=== PATIENT | female | born 1990 | race Caucasian/White ===

== ENCOUNTER 2019-10-10 08:25 | Inpatient (IN) ==
[2019-10-10] MEDS ORDERED: OXYTOCIN 30 UNITS/500 ML BAG IV PRN (13:15)
[2019-10-10] MEDS ORDERED: miSOPROStoL 50 MCG TAB PO ONE (13:15)
[2019-10-10] MEDS ORDERED: LACTATED RINGER'S 1,000 ML IV PRN (13:15)
[2019-10-10] MEDS ORDERED: PENICILLIN G POTASSIUM 3 MU in DEXTROSE 5% 100 ML IV PRN (13:15)
--- NOTE | 2019-10-10 13:15 | Obstetrical Progress Note ---
Date of Service October 10, 2019 Assessment & Plan Admission and Anticipated Discharge Date Admission Date: October 10, 2019 Subjective Met Pt and family Doing well GDMA2 on Insulin @ 39+weeks Here for induction of labor Bedside sono; Vt FHR; CAT1 Ctx; Minimal VE; ft/50/-3 Plan Cervidil PO x1 Results & Data ([facility]) Vital Signs (Past 12 Hours) Vital Signs Temp Pulse Resp BP 10/10/19 12:03 36.7 C 82 20 130/71 10/10/19 11:51 82 130/71 10/10/19 11:49 36.7 C 20
[2019-10-10] MEDS ORDERED: PENICILLIN G POTASSIUM 6 MU in DEXTROSE 5% 250 ML IV STA (13:19)
[2019-10-10] MEDS ORDERED: DEXTROSE 5% 1,000 ML IV PRN (13:31)
[2019-10-10] MEDS ORDERED: SODIUM CHLORIDE 0.9% 1000ML 1,000 ML IV PRN (13:31)
[2019-10-10] MEDS ORDERED: INSULIN REGULAR 250 UNITS in SODIUM CHLORIDE 0.9% 247.5 ML IV PRN (13:31)
[2019-10-10] MEDS ORDERED: DEXTROSE 50% 50 ML SYRINGE IV PRN ×2 (13:31→21:30)
[2019-10-10 13:46] LABS: Hematocrit (blood only) 32.1 % (37-47); Hemoglobin 11.1 g/dL (12.0-16.0); Mean Corpuscular Hemoglobin 32.2 pg (25-34); Platelet Count 290 K/uL (130-400); RDW Coefficient of Variation 13.3 % (11.5-14.5); RDW Standard Deviation 45.1 fL (36.4-46.3); Red Blood Count 3.45 M/uL (4.2-5.4); White Blood Count 12.23 K/uL (4.8-10.8)
[2019-10-10 14:12] LABS: Mean Corpuscular Hgb Conc 34.6 g/dL (32-36)
[2019-10-10] MEDS ORDERED: DINOPROSTONE 10 MG INSERT PV ONE (20:30)
--- NOTE | 2019-10-10 21:28 | Obstetrical Progress Note ---
Date of Service October 10, 2019 Assessment & Plan Admission and Anticipated Discharge Date Admission Date: October 10, 2019 Subjective Pt doing well GDMA2 on insulin BS after dinner is 102 FHR; CAT1 Ctx; Minimal Plan; Will give Pt PM insulin and monitor Q2hrs Change IV from D5 to NS discussed plan with Pharmacy Results & Data ([facility]) Vital Signs (Past 12 Hours) Vital Signs Temp Pulse Resp BP 10/10/19 19:10 36.8 C 79 18 128/67 10/10/19 18:02 82 124/73 10/10/19 15:35 80 125/73 10/10/19 13:29 81 129/83 10/10/19 12:03 36.7 C 82 20 130/71 10/10/19 11:51 82 130/71 10/10/19 11:49 36.7 C 20
[2019-10-10] MEDS ORDERED: GLUCAGON FOR INJ 1 MG VIAL IM PRN (21:30)
[2019-10-10] MEDS: SODIUM CHLORIDE 0.9% 1000ML 1,000 ML IV SCH (21:30)
[2019-10-10] MEDS ORDERED: GLUCOSE 10 TABS/TUBE PO PRN (21:30)
[2019-10-10] MEDS ORDERED: CARBOHYDRATES FOR HYPOGLYCEMIA PO PRN (21:30)
[2019-10-10] MEDS ORDERED: GLUCOSE 40% GEL 15 GM TUBE PO PRN (21:30)
[2019-10-10] MEDS ORDERED: INSULIN DETEMIR FLEXPEN/FLEX TOUCH 100 UNITS/ML 3ML SC ONE (22:00)
[2019-10-11] MEDS: SODIUM CHLORIDE 0.9% 1000ML 1,000 ML IV SCH ×3 (04:49→20:00)
--- NOTE | 2019-10-11 08:20 | History & Physical Report ---
Date of Service October 11, 2019 Assessment & Plan (1) Gestational diabetes mellitus (GDM): 29 yo at 39.4 wks IOL for GDAM2 on insulin VSS Afebrile FS have been WNL GBS + Cervix not favorable Vaginal latisha noted Plan to continue with cervical ripening with PO Cytotec FS cover with insulin PCN for GBS Diflucan one dose Continue to monitor (2) Elective induction of labor planned: History of Present Illness Primary Care Provider: Narendra Morales MD Patient is a 29 yo at 39.4 wks IOL since yesterday for GDAMA2, on insulin Received PO Cytotec and Cervidil last night GBS + She does not feel any ctxs nor pain No LOF/VB +FM Denies any medical problems/ Smoking/ alcohol or Drug use No h/o STD's , no h/o HSV Allergies Allergy/AdvReac Type Severity Reaction Status Date / Time nickel Allergy Rash Verified 10/10/19 12:32 Home Medications Home Medications Medication Instructions Recorded Confirmed Type insulin detemir U-100 [Levemir 55 unit SUBCUT BID 09/22/19 10/10/19 History FlexTouch U-100 Insuln] vit-iron fum-folic ac 1 tab PO DAILY 09/22/19 10/10/19 History [ Vitamin] insulin aspart U-100 [Novolog See Rx Instructions .ROUTE .COMPLEX 10/10/19 10/10/19 History Flexpen U-100 Insulin] insulin aspart U-100 [Novolog See Rx Instructions .ROUTE .COMPLEX 10/10/19 10/10/19 History Flexpen U-100 Insulin] Patient History Medical History Chronic back pain Gestational diabetes Infertility Temporomandibular joint disorder POPS BILATERALLY AFTER DENTAL APPT-NO LOCKING Surgical History History of colonoscopy History of removal of ovarian cyst right ovary 2018 [place] teeth removed 2016 Family History Grandmother (Maternal) Diabetes mellitus type 1 Father Hypertension Grandfather (Maternal) Cancer Grandfather (Paternal) Cancer Social History Preferred Language: [place] Islander Communication Ability: Effective 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 Beliefs That Will Affect Care: None marital status: Current Living Situation: Spouse Other Information That Helps Us Care for You: No Feels Safe at Home: Yes Safety Concerns: Feels Safe At This Time Smoking Status: Never smoker Hx Alcohol Use: No Hx Substance Use: No Review of Systems All systems reviewed & are unremarkable except as noted in HPI & below Physical Exam Gastrointestinal (Abdomen): normal bowel sounds, soft, nontender, no hepatosplenomegaly Abd: soft, NT, gravid Mateo 7-8 lb Genitourinary: Speculum/Bimanual Exam: + vaginal erythema Manual OB Exam: + cervical dilation 1 cm, + cervical effacement 50% and + station high OB Exam Monitor Tracing: + category I Results & Data Vital Signs (Past 12 Hours) Vital Signs Temp Pulse Resp BP 10/11/19 07:36 36.7 C 67 16 99/56 L 10/11/19 04:27 76 102/58 L 10/11/19 04:26 36.7 C 16 10/11/19 00:36 36.7 C 81 16 105/56 L 10/10/19 21:59 36.8 C 79 16 121/69
[2019-10-11] MEDS ORDERED: FLUCONAZOLE 50 MG TAB PO STA (09:06)
[2019-10-11] MEDS: miSOPROStoL 50 MCG TAB PO SCH ×3 (09:32→17:44)
[2019-10-11] MEDS ORDERED: BUTORPHANOL TARTRATE 1 MG/ML VIAL IV PRN (10:00)
[2019-10-11] MEDS ORDERED: INSULIN ASPART 100 UNITS/ML 3 ML PEN SC SCH (11:30)
[2019-10-11] MEDS ORDERED: PENICILLIN G POTASSIUM 6 MU in DEXTROSE 5% 250 ML IV STA (16:22)
--- NOTE | 2019-10-11 17:24 | Obstetrical Progress Note ---
Date of Service October 11, 2019 Assessment & Plan Admission and Anticipated Discharge Date Admission Date: October 10, 2019 Subjective Patient is reevaluated She is due for 3rd dose of Cytotec She feels mild ctxs q 3-5 min, pain is 4/10, sometimes milder She has been walking with no discomfort No LOF/VB +FM's VE; 1-2 cm/ 50%/ -3, posterior FHR categ I [facility]: mild irregular ctxs 1st bag of PCN is running now Plan to continue with cytotec, AROM after 2nd dose of PCN Results & Data ([facility]) Vital Signs (Past 12 Hours) Vital Signs Temp Pulse Resp BP 10/11/19 16:05 68 114/60 10/11/19 14:43 69 112/62 10/11/19 11:50 36.3 C L 18 10/11/19 11:49 72 123/80 10/11/19 10:58 83 134/82 10/11/19 08:43 77 132/72 10/11/19 07:36 36.7 C 67 16 99/56 L
--- NOTE | 2019-10-11 19:46 | Obstetrical Progress Note ---
Date of Service October 11, 2019 Assessment & Plan Admission and Anticipated Discharge Date Admission Date: October 10, 2019 Subjective Patient reevaluated She became painful and received Stadol for pain, then SROM'ed with moderate meconium stained fluid'FHR with decreased variability ( s/p narcotics) with mild early/ late? decels with spontaneous recovery VE; 3/ 70%/ -3, + response to scalp stimulation with increase in FHR and variability, meconium stained fluid Will continue to monitor closely with IVF, Nasal O2, expect Stadol will wear off in next 30 minutes Results & Data ([facility]) Vital Signs (Past 12 Hours) Vital Signs Temp Pulse Resp BP 10/11/19 19:32 36.6 C 87 18 136/86 10/11/19 16:05 68 114/60 10/11/19 15:06 36.7 C 18 10/11/19 14:43 69 112/62 10/11/19 11:50 36.3 C L 18 10/11/19 11:49 72 123/80 10/11/19 10:58 83 134/82 10/11/19 08:43 77 132/72
[2019-10-11] MEDS ORDERED: ePHEDrine sulfate 50 MG/ML AMP ONE (20:31)
[2019-10-11] MEDS ORDERED: BUPIVACAINE 0.25% 30 ML VIAL ONE (20:31)
[2019-10-11] MEDS ORDERED: fentaNYL citrate 100 MCG/2 ML VIAL ONE ×2 (20:31→23:25)
[2019-10-11] MEDS ORDERED: fentaNYL 2MCG/ML ROPIV 1.25MG/ML 100 ML BAG EPI ONE (20:32)
--- NOTE | 2019-10-11 20:33 | Obstetrical Progress Note ---
Date of Service October 11, 2019 Assessment & Plan Admission and Anticipated Discharge Date Admission Date: October 10, 2019 Subjective Patient desires epidural for pain Pain is 8/10, feels pressure VE; good 3 cm/ 80%/ -3, light meconium FHR 120's, with improved variability, accels and mild decels to 110's with ctxs with spontaneous recovery, + response to scalp stimulation Continue to monitor closely Epidural for pain Results & Data ([facility]) Vital Signs (Past 12 Hours) Vital Signs Temp Pulse Resp BP 10/11/19 19:32 36.6 C 87 18 136/86 10/11/19 16:05 68 114/60 10/11/19 15:06 36.7 C 18 10/11/19 14:43 69 112/62 10/11/19 11:50 36.3 C L 18 10/11/19 11:49 72 123/80 10/11/19 10:58 83 134/82 10/11/19 08:43 77 132/72
[2019-10-11] MEDS ORDERED: TERBUTALINE SULFATE 1 MG/ML VIAL SQ ONE (20:37)
[2019-10-11] MEDS ORDERED: DiphenhydrAMINE HCL 50 MG/ML VIAL IV PRN (20:58)
[2019-10-11] MEDS ORDERED: fentaNYL 2MCG/ML ROPIV 1.25MG/ML 100 ML BAG EPI PRN (20:58)
[2019-10-11] MEDS ORDERED: ePHEDrine sulfate 50 MG/ML AMP IV PRN (20:58)
[2019-10-11] MEDS ORDERED: NALOXONE HCL 0.4 MG/1 ML VIAL/CARP IV PRN (20:58)
[2019-10-11] MEDS ORDERED: ONDANSETRON INJ 2 MG/ML 2 ML VIAL IV PRN (20:58)
[2019-10-11] MEDS ORDERED: NALOXONE HCL 1 MG in SODIUM CHLORIDE 0.9% 1000ML 1,000 ML IV PRN (20:58)
[2019-10-11] MEDS ORDERED: NALBUPHINE HCL INJ 10 MG/ML AMP IV PRN (20:58)
--- NOTE | 2019-10-11 21:00 | Anesthesiology Consultation ---
Date of Service October 11, 2019 Assessment & Plan (1) Encounter for pre-operative examination: Chart Review Chart Review: Patient NOT seen in Pre Admission Testing and Acceptable Risk for Labor Epidural Consults Requested none History Height/Weight Height: 5 ft 2 in Weight: 84.822 kg Allergies Allergy/AdvReac Type Severity Reaction Status Date / Time nickel Allergy Rash Verified 10/10/19 12:32 Medications Home Medications Medication Instructions Recorded Confirmed Last Taken insulin detemir U-100 [Levemir 55 unit SUBCUT BID 09/22/19 10/10/19 10/10/19 08:00 FlexTouch U-100 Insuln] vit-iron fum-folic ac 1 tab PO DAILY 09/22/19 10/10/19 10/09/19 23:00 [ Vitamin] insulin aspart U-100 [Novolog See Rx Instructions .ROUTE .COMPLEX 10/10/19 10/10/19 10/09/19 12:00 Flexpen U-100 Insulin] insulin aspart U-100 [Novolog See Rx Instructions .ROUTE .COMPLEX 10/10/19 10/10/19 10/09/19 19:45 Flexpen U-100 Insulin] Active Medications Generic Name Dose Route Start Last Admin Trade Name Freq PRN Reason Stop Dose Admin Butorphanol Tartrate 1 mg 10/11/19 10:00 10/11/19 19:01 Stadol IV 11/10/19 09:59 1 mg Q2HWA PRN Administration Pain Penicillin G Potassium 3 mu/ 106 mls @ 100 mls/hr 10/10/19 13:15 10/11/19 21:08 Dextrose IV 10/20/19 13:14 100 mls/hr Q4H PRN Administration Give until delivery Dextrose 1,000 mls @ 100 mls/hr 10/10/19 13:31 10/10/19 21:30 D5w IV 11/09/19 13:30 0 mls/hr .Q10H PRN Infusion BSG 180 or below Protocol Sodium Chloride 1,000 mls @ 125 mls/hr 10/10/19 22:15 10/11/19 20:53 Nss 1000ml IV 11/09/19 22:14 125 mls/hr .Q8H CONG Infusion Misoprostol 50 mcg 10/11/19 10:00 10/11/19 17:44 Cytotec PO 11/10/19 09:59 50 mcg Q4 CONG Administration Past Medical History Medical History Chronic back pain Gestational diabetes Infertility Temporomandibular joint disorder POPS BILATERALLY AFTER DENTAL APPT-NO LOCKING Exercise / Class Metabolic Activity II 4-5 Yardwork/Stairs/Walk up hill Past Family History Family History Grandmother (Maternal) Diabetes mellitus type 1 Father Hypertension Grandfather (Maternal) Cancer Grandfather (Paternal) Cancer Past Surgical History Surgical History History of colonoscopy History of removal of ovarian cyst right ovary 2018 [place] teeth removed 2016 Past Anesthesia History No Hx of Anesthesia Complications and No Family Hx of Anesthesia Complications History of PONV No Hx of PONV and No Hx of Motion Sickness Social History Smoking Status: Never smoker Hx Alcohol Use: No Alcohol type: hard liquor alcohol intake frequency: other Hx Substance Use: No substance use type: does not use Physical Exam Vital Signs Last Vital Signs Temp 36.6 C 10/11/19 21:05 Pulse 100 H 10/11/19 21:16 Resp 20 10/11/19 21:05 BP 150/80 H 10/11/19 21:16 Pulse Ox 96 10/11/19 21:15 Testing Laboratory Results 10/10/19 13:29 10/11/19 10/11/19 10/11/19 20:52 19:43 17:29 POC Glucose 75 74 89 10/11/19 10/11/19 13:32 09:30 POC Glucose 80 105 H
[2019-10-11] MEDS ORDERED: D5W AND LACTATED RINGERS 1,000 ML IV SCH (22:15)
[2019-10-11] MEDS ORDERED: LACTATED RINGER'S 1,000 ML IV SCH (22:30)
--- NOTE | 2019-10-11 22:37 | Obstetrical Progress Note ---
Date of Service October 11, 2019 Assessment & Plan Admission and Anticipated Discharge Date Admission Date: October 10, 2019 Subjective Patient received epidural for pain, comfortable now VSS Afebrile FS's have been WNL, has not required insulin FHR had been 120's with decreased variability since SROM, with decels with each ctxs, early to late Improved with scalp stimulation but then goes back to decreased variability Categ II strip not improved over time Discussed above and recommended delivery sooner than later Cervix is 4 cm/ head at -2 station, remote from delivery Recommended Primary Csection She agreed Discussed the risks of major surgery s bleeding, infection, injury to surrounding organs ( bowels, bladder, ureters), blood cloths in legs/ lungs, scarring , adhesions She signed and informed consent All questions were answered. Results & Data ([facility]) Vital Signs (Past 12 Hours) Vital Signs Temp Pulse Resp BP Pulse Ox 10/11/19 22:30 76 100 10/11/19 22:25 74 100 10/11/19 22:20 78 100 10/11/19 22:19 77 18 131/65 10/11/19 22:15 84 100 10/11/19 22:10 76 100 10/11/19 22:05 73 124/60 100 10/11/19 22:00 79 100 10/11/19 21:55 72 100 10/11/19 21:50 71 100 10/11/19 21:49 71 107/56 L 10/11/19 21:47 65 106/56 L 10/11/19 21:45 66 99 10/11/19 21:44 60 103/56 L 10/11/19 21:41 63 18 108/56 L 10/11/19 21:40 67 100 10/11/19 21:37 65 108/56 L 10/11/19 21:35 67 106/55 L 99 10/11/19 21:32 73 107/56 L 10/11/19 21:30 67 99 10/11/19 21:29 71 111/55 L 10/11/19 21:26 68 114/55 L 10/11/19 21:25 69 100 10/11/19 21:23 66 20 118/55 L 10/11/19 21:20 68 20 132/60 100 10/11/19 21:16 100 H 150/80 H 10/11/19 21:15 106 H 96 06/30/20 21:10 81 98 10/11/19 21:05 36.6 C 106 H 20 100 10/11/19 21:00 86 144/77 H 100 10/11/19 19:32 36.6 C 87 18 136/86 10/11/19 16:05 68 114/60 10/11/19 15:06 36.7 C 18 10/11/19 14:43 69 112/62 10/11/19 11:50 36.3 C L 18 10/11/19 11:49 72 123/80 10/11/19 10:58 83 134/82
[2019-10-11] MEDS ORDERED: CEFAZOLIN 2000MG 2,000 MG/15 ML SYR IV ONE (22:45)
[2019-10-11] MEDS ORDERED: CITRIC ACID/SODIUM CITRATE 15 ML UDC PO ONE (22:45)
[2019-10-11 22:55] LABS: Hematocrit (blood only) 33.1 % (37-47); Mean Corpuscular Hemoglobin 31.3 pg (25-34); Mean Corpuscular Volume 94.3 fL (80-100); Mean Platelet Volume 9.9 fL (7.4-10.4); Platelet Count 263 K/uL (130-400); RDW Coefficient of Variation 13.3 % (11.5-14.5); RDW Standard Deviation 45.5 fL (36.4-46.3); Red Blood Count 3.51 M/uL (4.2-5.4); White Blood Count 15.39 K/uL (4.8-10.8)
[2019-10-11 22:56] LABS: Mean Corpuscular Hgb Conc 33.2 g/dL (32-36)
[2019-10-11] MEDS ORDERED: LIDOCAINE/EPINEPHRINE 2% 1:200,000 20 ML SDV ONE (23:04)
[2019-10-11] MEDS ORDERED: OXYTOCIN 10 UNITS/ML VIAL ONE (23:04)
[2019-10-11] MEDS ORDERED: MoRPHine SULFATE PF 1 MG/ML 10 ML AMP/VIAL ONE (23:04)
[2019-10-11 23:28] LABS: Basophils # (auto) 0.01 K/uL (0-0.2); Basophils % (auto) 0.1 %; Eosinophils # (auto) 0.02 K/uL (0-0.5); Eosinophils % (auto) 0.1 %; Immature Granulocytes # (auto) 0.05 K/uL (0.00-0.02); Immature Granulocytes % (auto) 0.3 %; Lymphocytes # (auto) 2.04 K/uL (1.2-3.4); Lymphocytes % (auto) 13.3 %; Monocytes % (auto) 3.2 %; Neutrophils # (auto) 12.77 K/uL (1.4-6.5)
[2019-10-12] MEDS ORDERED: ePHEDrine sulfate 50 MG/ML SYR ONE
[2019-10-12 00:23] LABS: Base Excess Cord Venous Blood -5.2 mEq/L (-7.7-1.9); Cord Venous Blood HCO3 21 mmol/L (18.4-26.8); Cord Venous Blood PCO2 45 mmHg (30.4-57.2); Cord Venous Blood PO2 23 mmHg (14.1-43.3); Cord Venous Blood pH 7.29 (7.20-7.44)
[2019-10-12] MEDS ORDERED: BENZOCAINE 20% AER SPR 82.5 GM CAN EXT PRN (00:24)
[2019-10-12] MEDS ORDERED: HYDROCORTISONE ACETATE 25 MG SUPP PR PRN (00:24)
[2019-10-12] MEDS ORDERED: SUPERCREAM 0.870% 15 GM JAR EXT PRN (00:24)
[2019-10-12] MEDS ORDERED: DIPHTHERIA/TETANUS/PERTUSSIS 0.5 ML SYR/VIAL IM ONE (00:24)
[2019-10-12] MEDS ORDERED: SENNA 8.6 MG TAB PO PRN (00:24)
[2019-10-12] MEDS ORDERED: MAGNESIUM HYDROXIDE SUSP 30 ML UDC PO PRN (00:24)
[2019-10-12] MEDS ORDERED: MEASLES, MUMPS & RUBELLA VIRUS VIAL SQ ONE (00:24)
[2019-10-12 00:25] LABS: CO2 Cord Arterial Blood 46 mmHg (39.1-73.5); HCO3 Cord Arterial Blood 19 mmol/L (19.7-28.5); Oxygen Sat Cord Arterial Blood < 60.0 % (<60); PO2 Cord Arterial Blood 28 mmHg (4.1-31.7); pH Cord Arterial Blood 7.24 (7.1-7.38)
[2019-10-12 00:26] LABS: O2 Saturation Cord Venous Bld < 60.0 % (<68)
[2019-10-12] MEDS ORDERED: LACTATED RINGER'S 1,000 ML IV SCH (00:30)
--- NOTE | 2019-10-12 00:31 | Post Operative Brief Note ---
Immediate Post Op Note v1 Date of Surgery October 12, 2019 Pre & Post Diagnosis Operation Date: 10/11/19 22:40 Pre-Op Diagnosis: Category ll tracing remote from delivery; Gestational Diabetes on Insulin; Meconium stained amniotic fluid Post-Op Diagnosis: Category ll tracing remote from delivery; Gestational Diabetes on Insulin; Meconium stained amniotic fluid I identified the patient and participated in the time-out.: Yes Procedure Operation Date: 10/11/19 22:40 Actual Procedures p Section in LD(Bilateral) - Tam Perera MD Surgeon Tam Perera MD Operator Graciela Carrasquillo RN Estimated Blood Loss 500 Findings Consistent with Post-Op Diagnosis Drains Vanessa Catheter (Applied prior to procedure and output monitored by anesthesia ) Anesthesia Type Labor Epidural Complications none Disposition Accompanied Patient To Recovery: Yes Disposition: L&D
[2019-10-12] MEDS ORDERED: MoRPHine SULFATE 2 MG/ML CARP IV PRN (00:32)
[2019-10-12] MEDS ORDERED: LACTATED RINGER'S 500 ML IV PRN (00:32)
[2019-10-12] MEDS ORDERED: NALBUPHINE HCL INJ 10 MG/ML AMP IV PRN (00:32)
[2019-10-12] MEDS ORDERED: DiphenhydrAMINE HCL 50 MG/ML VIAL IV PRN ×2 (00:32→18:32)
[2019-10-12] MEDS ORDERED: ONDANSETRON INJ 2 MG/ML 2 ML VIAL IV PRN ×2 (00:32→18:32)
[2019-10-12] MEDS ORDERED: KETOROLAC 30 MG/ML VIAL IV PRN ×2 (00:32→18:32)
[2019-10-12] MEDS ORDERED: ePHEDrine sulfate 50 MG/ML AMP IV PRN (00:32)
[2019-10-12] MEDS ORDERED: PROMETHAZINE HCL 25 MG in SODIUM CHLORIDE 0.9% 50 ML IV PRN ×2 (00:32→18:32)
[2019-10-12] MEDS ORDERED: NALOXONE HCL 1 MG in SODIUM CHLORIDE 0.9% 1000ML 1,000 ML IV PRN (00:32)
[2019-10-12] MEDS ORDERED: NALOXONE HCL 0.08 MG in SYRINGE 1.8 ML IV PRN (00:32)
[2019-10-12] MEDS ORDERED: NALOXONE HCL 0.4 MG/1 ML VIAL/CARP IV PRN (00:32)
[2019-10-12] MEDS ORDERED: MoRPHine SULFATE PF 1 MG/ML 10 ML AMP/VIAL EPI ONE (00:32)
[2019-10-12] MEDS ORDERED: NO NARCOTICS OR SEDATIVES SCH (00:45)
[2019-10-12] MEDS ORDERED: SODIUM CHLORIDE 0.9% 1000ML 1,000 ML IV SCH (00:45)
[2019-10-12] MEDS ORDERED: DC INTRASPINAL MORPHINE SCH (00:45)
--- NOTE | 2019-10-12 00:46 | Anesthesiology Progress Note ---
Date of Service October 12, 2019 Anesthesia Post Procedure Vital Signs Vital Signs: Temp Pulse Resp BP Pulse Ox 10/12/19 00:44 93 H 115/70 10/12/19 00:42 105 H 99 10/12/19 00:37 92 H 97 10/12/19 00:33 85 142/76 H 10/12/19 00:32 85 98 10/11/19 23:10 76 100 10/11/19 23:05 76 18 131/67 100 10/11/19 23:00 85 99 10/11/19 22:59 36.6 C 18 10/11/19 22:55 76 98 10/11/19 22:50 80 98 10/11/19 22:49 85 125/70 10/11/19 22:45 86 99 10/11/19 22:40 82 100 10/11/19 22:35 75 100 10/11/19 22:34 93 H 125/70 10/11/19 22:30 76 100 10/11/19 22:25 74 100 10/11/19 22:20 78 100 10/11/19 22:19 77 18 131/65 10/11/19 22:15 84 100 10/11/19 22:10 76 100 10/11/19 22:05 73 124/60 100 10/11/19 22:00 79 100 10/11/19 21:55 72 100 10/11/19 21:50 71 100 10/11/19 21:49 71 107/56 L 10/11/19 21:47 65 106/56 L 10/11/19 21:45 66 99 10/11/19 21:44 60 103/56 L 10/11/19 21:41 63 18 108/56 L 10/11/19 21:40 67 100 10/11/19 21:37 65 108/56 L 10/11/19 21:35 67 106/55 L 99 10/11/19 21:32 73 107/56 L 10/11/19 21:30 67 99 10/11/19 21:29 71 111/55 L 10/11/19 21:26 68 114/55 L 10/11/19 21:25 69 100 10/11/19 21:23 66 20 118/55 L 10/11/19 21:20 68 20 132/60 100 10/11/19 21:16 100 H 150/80 H 06/30/20 21:15 106 H 96 10/11/19 21:10 81 98 10/11/19 21:05 36.6 C 106 H 20 100 10/11/19 21:00 86 144/77 H 100 10/11/19 19:32 36.6 C 87 18 136/86 10/11/19 16:05 68 114/60 10/11/19 15:06 36.7 C 18 10/11/19 14:43 69 112/62 10/11/19 11:50 36.3 C L 18 10/11/19 11:49 72 123/80 10/11/19 10:58 83 134/82 10/11/19 08:43 77 132/72 10/11/19 07:36 36.7 C 67 16 99/56 L 10/11/19 04:27 76 102/58 L 10/11/19 04:26 36.7 C 16 Transfer of Care Handoff Completed per policy Notes Mental Status: alert / awake / arousable and participated in evaluation Patient Amnestic to Procedure: Yes Nausea / Vomiting: adequately controlled Pain: adequately controlled Airway Patency, RR, SpO2: stable & adequate BP & HR: stable & adequate Hydration State: stable & adequate Anesthetic Complications: no major complications apparent and Pt Satisfied with anesthetic care
[2019-10-12] MEDS: OXYTOCIN 20 UNITS in LACTATED RINGER'S 1,000 ML IV SCH ×2 (01:40→10:14)
[2019-10-12] MEDS: miSOPROStoL 50 MCG TAB PO SCH (02:05)
--- NOTE | 2019-10-12 02:21 | Operative Report (OR) ---
DATE OF OPERATION: 10/11/2019 PREOPERATIVE DIAGNOSES: 1. The patient is a 29-year-old G1, P0 at 39 weeks and 4 days of gestation, gestational diabetes, on insulin. 2. Induction of labor since October 09, protracted labor, remote from delivery. 3. Nonreassuring heart rate, category 2 strip, not improving over time. 4. Meconium stained amniotic fluid. POSTOPERATIVE DIAGNOSES: 1. The patient is a 29-year-old G1, P0 at 39 weeks and 4 days of gestation, gestational diabetes, on insulin. 2. Induction of labor since October 09, protracted labor, remote from delivery. 3. Nonreassuring heart rate, category 2 strip, not improving over time. 4. Meconium stained amniotic fluid. 5. Occiput posterior position PROCEDURE: Low transverse with Pfannenstiel skin incision. SURGEON: Tam Perera MD VICE PRESIDENT MARKETING & DEVELOPMENT: Graciela Carrasquillo RN, labor and delivery nurse. ESTIMATED BLOOD LOSS: 500 mL. DRAINS: Vanessa catheter drained 250 mL of clear urine. INTRAVENOUS FLUIDS: 1200 mL of lactated ringer. ANESTHESIA: Epidural, Dr. Up. COMPLICATIONS: None. FINDINGS: Baby was a viable female delivered at 23:34 p.m. on cephalic presentation with occiput posterior position. Apgars were 9/9. Maternal findings, normal uterus and there were adhesions of the fallopian tubes over the posterior uterine serosa and cul-de-sac with underlying small endometrioma in bilateral ovaries. There were adhesions in the cul-de-sac from prior history of endometriosis and infertility surgery. DESCRIPTION OF PROCEDURE: The patient was taken to the operating room where epidural anesthesia was found to be adequate. She was placed in dorsal supine position with a leftward tilt. She was prepared and draped in the usual sterile fashion, Pfannenstiel skin incision was made and carried through the underlying layer of fascia with the Bovie. Fascia was incised in the midline. Incision was extended laterally with the help of Gaona scissors. Upper aspect of the fascial incision was then grasped with 2 Estelita clamps, elevated, underlying rectus muscles were dissected off sharply with Gaona scissors. Lower aspect of the fascial incision was then grasped with 2 Estelita clamps, elevated, underlying rectus muscles were dissected off sharply and bluntly. Rectus muscles were already . Peritoneum was identified, entered bluntly with fingers. Peritoneal incision was extended superiorly and inferiorly with good visualization of the bladder. Bladder blade was inserted. Vesicouterine peritoneum was identified, grasped with pickups, entered sharply with Metzenbaum scissors and the bladder flap was created digitally and bladder blade was reinserted. Lower uterine segment was incised in transverse fashion. It was extended with fingers laterally. Baby's face was at the incision site and then head was delivered without difficulty. Shoulders were delivered with minimal traction. Mouth and nose were suctioned. Baby was vigorously crying and moving. Cord was clamped x2 and cut at 1 minute delay and baby was handed off to the waiting ct tech, Dr. Gonzalez. Cord blood was obtained. Placenta was delivered manually as intact and complete. Uterus was exteriorized, cleared of all clots and debris. Fundus was firm. Uterine incision was repaired with 0 Vicryl in a running locked fashion and imbricating second layer was placed with the same suture in a running locked fashion. Excellent hemostasis was achieved. Cul-de-sac was irrigated with warm normal saline and suctioned. Uterus was returned to the abdomen. The pelvis was irrigated with warm normal saline and suctioned. The parietal peritoneum was reapproximated with 3-0 Vicryl in a running fashion. Rectus muscles were reapproximated with 3-0 Vicryl with interrupted stitches and the rectus fascia was reapproximated with 0 Vicryl in a running fashion. Subcuticular fat tissue was reapproximated with 3-0 Vicryl in a running fashion. Skin was closed with 4-0 Monocryl in a subcuticular fashion. The patient tolerated the procedure well. Sponge, lap, needle count was correct x3 and no complications happened and I was present during whole procedure. At the end of procedure, the patient was taken to labor and delivery in stable condition. I attest to the content of the Intraoperative Record and any orders documented therein. Any exceptions are noted below. MARY
[2019-10-12] MEDS ORDERED: CEFAZOLIN 2000MG 2,000 MG/15 ML SYR IV ONE (06:00)
[2019-10-12] MEDS: SIMETHICONE 80 MG CHEW PO SCH ×4 (09:08→21:48)
[2019-10-12] MEDS: FERROUS SULFATE 325 MG TAB PO SCH (09:08)
[2019-10-12] MEDS: PRENATAL VITAMIN 1 TAB PO SCH (09:08)
[2019-10-12] MEDS: DOCUSATE SODIUM 100 MG CAP PO SCH ×2 (09:08→21:48)
--- NOTE | 2019-10-12 10:49 | Obstetrical Progress Note ---
Date of Service October 12, 2019 Assessment & Plan (1) delivery delivered: POD #1 pt doing well tolerating Po food and meds continue day #1 care Results & Data Vital Signs (Past 12 Hours) Vital Signs Temp Pulse Pulse Resp BP BP Pulse Ox 10/12/19 09:30 18 98 10/12/19 08:30 20 99 10/12/19 07:30 36.6 C 66 18 128/81 99 10/12/19 06:42 78 99 10/12/19 06:37 69 95 10/12/19 06:32 71 94 10/12/19 06:27 72 93 10/12/19 06:22 69 94 10/12/19 06:17 66 95 10/12/19 06:12 68 95 10/12/19 06:07 69 94 10/12/19 06:02 69 94 10/12/19 05:57 67 97 10/12/19 05:52 72 16 97 10/12/19 05:47 71 98 10/12/19 05:42 63 95 10/12/19 05:37 69 97 10/12/19 05:32 76 98 10/12/19 05:27 67 95 10/12/19 05:22 65 97 10/12/19 05:17 69 93 10/12/19 05:12 65 97 10/12/19 05:07 64 96 10/12/19 05:04 61 91 10/12/19 05:03 16 96 10/12/19 05:02 64 96 10/12/19 04:57 62 95 10/12/19 04:52 75 96 10/12/19 04:47 72 96 10/12/19 04:42 74 97 10/12/19 04:37 76 96 10/12/19 04:32 82 96 10/12/19 04:27 71 97 10/12/19 04:22 75 95 10/12/19 04:20 16 94 10/12/19 04:17 70 94 10/12/19 04:12 72 94 10/12/19 04:07 72 96 10/12/19 04:02 68 97 10/12/19 03:57 68 97 10/12/19 03:52 80 97 10/12/19 03:47 82 98 10/12/19 03:44 37.0 C 76 16 131/74 10/12/19 03:42 71 97 10/12/19 03:37 73 98 10/12/19 03:32 79 129/75 97 10/12/19 03:27 75 97 10/12/19 03:22 94 H 97 10/12/19 03:17 90 96 10/12/19 03:12 83 129/63 98 10/12/19 03:07 86 97 10/12/19 03:02 73 96 10/12/19 02:57 81 97 10/12/19 02:52 67 130/67 97 10/12/19 02:47 71 98 10/12/19 02:42 77 97 10/12/19 02:37 70 94 10/12/19 02:32 37.0 C 78 16 129/72 96 10/12/19 02:27 76 96 10/12/19 02:22 71 96 10/12/19 02:17 77 97 10/12/19 02:12 81 126/64 97 10/12/19 02:07 81 96 10/12/19 02:02 77 16 124/63 97 10/12/19 01:57 71 96 10/12/19 01:52 78 122/65 95 10/12/19 01:47 68 95 10/12/19 01:42 70 121/77 96 10/12/19 01:37 100 H 97 10/12/19 01:32 36.6 C 75 18 117/63 96 10/12/19 01:27 83 95 10/12/19 01:26 86 93 10/12/19 01:22 78 18 115/64 96 10/12/19 01:17 77 96 10/12/19 01:12 86 18 112/53 L 96 10/12/19 01:07 89 97 10/12/19 01:02 83 18 121/57 L 97 10/12/19 00:57 92 H 98 10/12/19 00:52 82 18 126/62 98 10/12/19 00:49 86 92 10/12/19 00:47 83 98 10/12/19 00:44 93 H 18 115/70 10/12/19 00:42 105 H 99 10/12/19 00:37 92 H 97 10/12/19 00:36 36.6 C 18 10/12/19 00:33 85 142/76 H 10/12/19 00:32 85 98 10/11/19 23:10 76 100 10/11/19 23:05 76 18 131/67 100 10/11/19 23:00 85 99 10/11/19 22:59 36.6 C 18 10/11/19 22:55 76 98 10/11/19 22:50 80 98 10/11/19 22:49 85 125/70 Pulse Ox 10/12/19 09:30 10/12/19 08:30 10/12/19 07:30 99 10/12/19 06:42 10/12/19 06:37 10/12/19 06:32 10/12/19 06:27 10/12/19 06:22 10/12/19 06:17 10/12/19 06:12 10/12/19 06:07 10/12/19 06:02 10/12/19 05:57 10/12/19 05:52 10/12/19 05:47 10/12/19 05:42 10/12/19 05:37 10/12/19 05:32 10/12/19 05:27 10/12/19 05:22 10/12/19 05:17 10/12/19 05:12 10/12/19 05:07 10/12/19 05:04 10/12/19 05:03 10/12/19 05:02 10/12/19 04:57 10/12/19 04:52 10/12/19 04:47 10/12/19 04:42 10/12/19 04:37 10/12/19 04:32 10/12/19 04:27 10/12/19 04:22 10/12/19 04:20 10/12/19 04:17 10/12/19 04:12 10/12/19 04:07 10/12/19 04:02 10/12/19 03:57 10/12/19 03:52 10/12/19 03:47 10/12/19 03:44 10/12/19 03:42 10/12/19 03:37 10/12/19 03:32 10/12/19 03:27 10/12/19 03:22 10/12/19 03:17 10/12/19 03:12 10/12/19 03:07 10/12/19 03:02 10/12/19 02:57 10/12/19 02:52 10/12/19 02:47 10/12/19 02:42 10/12/19 02:37 10/12/19 02:32 10/12/19 02:27 10/12/19 02:22 10/12/19 02:17 10/12/19 02:12 10/12/19 02:07 10/12/19 02:02 10/12/19 01:57 10/12/19 01:52 10/12/19 01:47 10/12/19 01:42 10/12/19 01:37 10/12/19 01:32 10/12/19 01:27 10/12/19 01:26 10/12/19 01:22 10/12/19 01:17 10/12/19 01:12 10/12/19 01:07 10/12/19 01:02 10/12/19 00:57 10/12/19 00:52 10/12/19 00:49 10/12/19 00:47 10/12/19 00:44 10/12/19 00:42 10/12/19 00:37 10/12/19 00:36 10/12/19 00:33 10/12/19 00:32 10/11/19 23:10 10/11/19 23:05 10/11/19 23:00 10/11/19 22:59 10/11/19 22:55 10/11/19 22:50 10/11/19 22:49
[2019-10-12] MEDS ORDERED: OXYCODONE/ACETAMINOPHEN 5mg/325mg TAB PO PRN (18:32)
[2019-10-12] MEDS ORDERED: MEPERIDINE HCL 50 MG/ML CARP IV PRN (18:32)
[2019-10-12] MEDS: IBUPROFEN 600 MG TAB PO PRN (19:16)
[2019-10-13] MEDS: IBUPROFEN 600 MG TAB PO PRN ×2 (04:44→11:11)
[2019-10-13 07:01] LABS: Basophils # (auto) 0.02 K/uL (0-0.2); Basophils % (auto) 0.1 %; Eosinophils # (auto) 0.15 K/uL (0-0.5); Eosinophils % (auto) 1.1 %; Hematocrit (blood only) 28.3 % (37-47); Hemoglobin 9.2 g/dL (12.0-16.0); Immature Granulocytes # (auto) 0.03 K/uL (0.00-0.02); Immature Granulocytes % (auto) 0.2 %; Lymphocytes # (auto) 3.37 K/uL (1.2-3.4); Lymphocytes % (auto) 25.1 %; Mean Corpuscular Hemoglobin 31.1 pg (25-34); Mean Corpuscular Hgb Conc 32.5 g/dL (32-36); Mean Corpuscular Volume 95.6 fL (80-100); Mean Platelet Volume 9.6 fL (7.4-10.4); Monocytes # (auto) 0.95 K/uL (0.11-0.59); Monocytes % (auto) 7.1 %; Neutrophils # (auto) 8.92 K/uL (1.4-6.5); Neutrophils % (auto) 66.4 %; Platelet Count 241 K/uL (130-400); RDW Coefficient of Variation 13.6 % (11.5-14.5); RDW Standard Deviation 46.6 fL (36.4-46.3); Red Blood Count 2.96 M/uL (4.2-5.4); White Blood Count 13.44 K/uL (4.8-10.8)
[2019-10-13] MEDS: FERROUS SULFATE 325 MG TAB PO SCH (08:24)
[2019-10-13] MEDS: DOCUSATE SODIUM 100 MG CAP PO SCH (08:24)
[2019-10-13] MEDS: SIMETHICONE 80 MG CHEW PO SCH (08:24)
[2019-10-13] MEDS: PRENATAL VITAMIN 1 TAB PO SCH (08:25)
--- NOTE | 2019-10-13 10:04 | Surgery Progress Note ---
Date of Service October 13, 2019 Subjective POD#3 doing fine planning for discharge Physical Exam Constitutional: WD/WN, vitals as above comfortable abdomen soft and non- tender incision c/d/i neg edema neg Jace's for d/c home f/u in 1 week Results & Data Vital Signs (Past 12 Hours) Vital Signs Temp Pulse Resp BP Pulse Ox 10/13/19 07:40 36.6 C 73 18 126/98 97 10/12/19 23:10 37.3 C 85 16 127/79 96 Laboratory Results 10/10/19 10/10/19 10/10/19 12:36 13:29 16:23 WBC 12.23 H RBC 3.45 L Hgb 11.1 L Hct 32.1 L MCV 93.0 MCH 32.2 MCHC 34.6 RDW Std Deviation 45.1 RDW Coeff of Emil 13.3 Plt Count 290 MPV 10.0 Immature Gran % (Auto) Neut % (Auto) Lymph % (Auto) [place] % (Auto) Eos % (Auto) Baso % (Auto) Neut # (Auto) Lymph # (Auto) [place] # (Auto) Eos # (Auto) Baso # (Auto) Immature Gran # (Auto) Cord ABG pH Cord ABG pCO2 Cord ABG pO2 Cord ABG HCO3 Cord ABG Base Excess Cord ABG O2 Sat Cord VBG pH Cord VBG pCO2 Cord VBG pO2 Cord VBG HCO3 Cord VBG Base Excess Cord VBG O2 Sat Blood Gas Comments POC Glucose 93 74 Blood Type 10/10/19 10/10/19 10/11/19 18:27 20:27 00:31 WBC RBC Hgb Hct MCV MCH MCHC RDW Std Deviation RDW Coeff of Emil Plt Count MPV Immature Gran % (Auto) Neut % (Auto) Lymph % (Auto) [place] % (Auto) Eos % (Auto) Baso % (Auto) Neut # (Auto) Lymph # (Auto) [place] # (Auto) Eos # (Auto) Baso # (Auto) Immature Gran # (Auto) Cord ABG pH Cord ABG pCO2 Cord ABG pO2 Cord ABG HCO3 Cord ABG Base Excess Cord ABG O2 Sat Cord VBG pH Cord VBG pCO2 Cord VBG pO2 Cord VBG HCO3 Cord VBG Base Excess Cord VBG O2 Sat Blood Gas Comments POC Glucose 76 102 H 87 Blood Type 06/10/11/19 10/11/19 04:30 08:33 09:30 WBC RBC Hgb Hct MCV MCH MCHC RDW Std Deviation RDW Coeff of Emil Plt Count MPV Immature Gran % (Auto) Neut % (Auto) Lymph % (Auto) [place] % (Auto) Eos % (Auto) Baso % (Auto) Neut # (Auto) Lymph # (Auto) [place] # (Auto) Eos # (Auto) Baso # (Auto) Immature Gran # (Auto) Cord ABG pH Cord ABG pCO2 Cord ABG pO2 Cord ABG HCO3 Cord ABG Base Excess Cord ABG O2 Sat Cord VBG pH Cord VBG pCO2 Cord VBG pO2 Cord VBG HCO3 Cord VBG Base Excess Cord VBG O2 Sat Blood Gas Comments POC Glucose 80 70 105 H Blood Type 10/11/19 10/11/19 10/11/19 13:32 17:29 19:43 WBC RBC Hgb Hct MCV MCH MCHC RDW Std Deviation RDW Coeff of Emil Plt Count MPV Immature Gran % (Auto) Neut % (Auto) Lymph % (Auto) [place] % (Auto) Eos % (Auto) Baso % (Auto) Neut # (Auto) Lymph # (Auto) [place] # (Auto) Eos # (Auto) Baso # (Auto) Immature Gran # (Auto) Cord ABG pH Cord ABG pCO2 Cord ABG pO2 Cord ABG HCO3 Cord ABG Base Excess Cord ABG O2 Sat Cord VBG pH Cord VBG pCO2 Cord VBG pO2 Cord VBG HCO3 Cord VBG Base Excess Cord VBG O2 Sat Blood Gas Comments POC Glucose 80 89 74 Blood Type 10/11/19 10/11/19 10/11/19 20:52 21:46 22:44 WBC 15.39 H RBC 3.51 L Hgb 11.0 L Hct 33.1 L MCV 94.3 MCH 31.3 MCHC 33.2 RDW Std Deviation 45.5 RDW Coeff of Emil 13.3 Plt Count 263 MPV 9.9 Immature Gran % (Auto) 0.3 Neut % (Auto) 83.0 Lymph % (Auto) 13.3 [place] % (Auto) 3.2 Eos % (Auto) 0.1 Baso % (Auto) 0.1 Neut # (Auto) 12.77 H Lymph # (Auto) 2.04 [place] # (Auto) 0.50 Eos # (Auto) 0.02 Baso # (Auto) 0.01 Immature Gran # (Auto) 0.05 H Cord ABG pH Cord ABG pCO2 Cord ABG pO2 Cord ABG HCO3 Cord ABG Base Excess Cord ABG O2 Sat Cord VBG pH Cord VBG pCO2 Cord VBG pO2 Cord VBG HCO3 Cord VBG Base Excess Cord VBG O2 Sat Blood Gas Comments POC Glucose 75 97 Blood Type 10/11/19 10/11/19 10/11/19 22:44 23:01 23:35 WBC RBC Hgb Hct MCV MCH MCHC RDW Std Deviation RDW Coeff of Emil Plt Count MPV Immature Gran % (Auto) Neut % (Auto) Lymph % (Auto) [place] % (Auto) Eos % (Auto) Baso % (Auto) Neut # (Auto) Lymph # (Auto) [place] # (Auto) Eos # (Auto) Baso # (Auto) Immature Gran # (Auto) Cord ABG pH 7.24 Cord ABG pCO2 46 Cord ABG pO2 28 Cord ABG HCO3 19 L Cord ABG Base Excess -8.0 Cord ABG O2 Sat < 60.0 Cord VBG pH Cord VBG pCO2 Cord VBG pO2 Cord VBG HCO3 Cord VBG Base Excess Cord VBG O2 Sat Blood Gas Comments RUSSELL POC Glucose 133 H Blood Type O Positive 10/11/19 10/12/19 10/12/19 23:35 08:13 09:25 WBC RBC Hgb Hct MCV MCH MCHC RDW Std Deviation RDW Coeff of Emil Plt Count MPV Immature Gran % (Auto) Neut % (Auto) Lymph % (Auto) [place] % (Auto) Eos % (Auto) Baso % (Auto) Neut # (Auto) Lymph # (Auto) [place] # (Auto) Eos # (Auto) Baso # (Auto) Immature Gran # (Auto) Cord ABG pH Cord ABG pCO2 Cord ABG pO2 Cord ABG HCO3 Cord ABG Base Excess Cord ABG O2 Sat Cord VBG pH 7.29 Cord VBG pCO2 45 Cord VBG pO2 23 Cord VBG HCO3 21 Cord VBG Base Excess -5.2 Cord VBG O2 Sat < 60.0 Blood Gas Comments RUSSELL POC Glucose 80 109 H Blood Type 10/12/19 10/12/19 10/13/19 13:37 19:32 06:48 WBC 13.44 H RBC 2.96 L Hgb 9.2 L Hct 28.3 L MCV 95.6 MCH 31.1 MCHC 32.5 RDW Std Deviation 46.6 H RDW Coeff of Emil 13.6 Plt Count 241 MPV 9.6 Immature Gran % (Auto) 0.2 Neut % (Auto) 66.4 Lymph % (Auto) 25.1 [place] % (Auto) 7.1 Eos % (Auto) 1.1 Baso % (Auto) 0.1 Neut # (Auto) 8.92 H Lymph # (Auto) 3.37 [place] # (Auto) 0.95 H Eos # (Auto) 0.15 Baso # (Auto) 0.02 Immature Gran # (Auto) 0.03 H Cord ABG pH Cord ABG pCO2 Cord ABG pO2 Cord ABG HCO3 Cord ABG Base Excess Cord ABG O2 Sat Cord VBG pH Cord VBG pCO2 Cord VBG pO2 Cord VBG HCO3 Cord VBG Base Excess Cord VBG O2 Sat Blood Gas Comments POC Glucose 116 H 128 H Blood Type
[2019-10-13] MEDS ORDERED: bisacodyL 5 MG TABEC PO SCH (20:00)
[2019-10-14] MEDS ORDERED: bisacodyL 10 MG SUPP PR PRN (00:24)
--- NOTE | 2019-10-14 17:06 | Discharge Summary (DS) ---
DETAILS OF ADMISSION: The patient is a 29-year-old G1, P0 at 39 weeks and 3 days of gestation, who was admitted on 10/09 for induction of labor for gestational diabetes, on insulin. She had cervical ripening on day 1 and then continued with ripening and induction on day #2. She SROM'd (spontaneous rupture of membranes) on 10/10 and then heart rate became a category 2, protracted labor, nonreassuring heart rate, remote from delivery. After discussion with the patient of the risks and benefits, recommended to have a delivery via . She had primary low transverse , delivered a viable female infant at 2334 p.m. on 10/11/2019. See dictated op note for details. Her surgery was uncomplicated. On postop period, she was doing well. Vital signs were stable, afebrile. Urine output was adequate. Her physical exam was unremarkable. Incision was clean, dry and intact. On postop day 2, the patient was doing well. Vital signs stable, afebrile. She was tolerating a regular diet, ambulating without dizziness, using bathroom, passing gas. Her H and H was 11.1/32.1. Her incision was clean, dry and intact. Extremities nontender, no edema. She desired to be discharged home. She was discharged on 10/13/2019. Discharge instructions were given when to call. Prescriptions were written for pain. She is to be seen in the office in a week for incision check. All questions were answered.
== END 2019-10-13 12:45 | disposition home or self-care (01) | DRG 788 ==
LOC: 4S1 11:39 → 4N 10-12 07:00